=== PATIENT | female | born 1990 | race Caucasian/White ===

== ENCOUNTER → 2024-09-10 | Outpatient (CLI) | payer OTHER ==
[~2024-09-10] MED LIST: ASPIRIN 81M81 MG/TA2 PO; Albuterol 0.083% Neb Soln 2.5 MG/3 ML UD IH ONE; CRESTOR20 MG PO; INDERAL 10MG10 MG PO; Methacholine Vial A (Clear Label Base-Cntrl) IH ONE; Methacholine Vial B (Red Label) 0.0625 MG/ML 3 ML VIAL.NEB IH ONE; Methacholine Vial C (Orange Label) 0.25 MG/ML 3 ML VIAL.NEB IH ONE; Methacholine Vial D (Yellow Label) 1 MG/ML 3 ML VIAL.NEB IH ONE; Methacholine Vial E (Green Label) 4 MG/ML 3 ML VIAL.NEB IH ONE; Methacholine Vial F (Blue Label) 16 MG/ML 3 ML VIAL.NEB IH ONE; NASAREL0.025 MG/1 NAS; PLAVIX 75MG TAB75 MG PO; PREDNISONE20 MG PO; TOPROL XL 25MG25 MG PO
== END ==
LOC: COL.CARD 11:57
DX: R06.02 Shortness of breath (principal)
CPT/HCPCS: J7674